=== PATIENT | female | born 1935 | race Two or more races ===

== ENCOUNTER → 2017-09-08 | Outpatient (CLI) | payer MEDICARE ==
--- NOTE | 2017-09-08 14:54 | HKNOTE ---
DATE OF SERVICE: CHIEF COMPLAINT: Right shoulder pain. HISTORY OF PRESENT ILLNESS: This is an 82-year-old female who is complaining of pain in the right s houlder. She has seen Dr. Rian Hobson previously. She states that the pain has been worsening o basil the last year. She is taking ibuprofen for pain control. She is unable to lift using her right hand. She denies any history of trauma. She denies any numbness or tingling. She denies any neck pain. She has no other complaints. Right shoulder 60 degrees forward flexion, 70 degrees of abduction, 40 degrees external rotation, 30 degrees internal rotation, 10 degrees extension. Positive belly press. Positive liftoff. Positiv e Neer's. Positive Nguyen test. IMAGING: X-rays right shoulder, 2 views of the right shoulder demonstrate degenerative changes of t he glenohumeral joint with osteophyte formation and superior migration of the humeral head. IMPRESSION: An 82-year-old female with right shoulder rotator cuff arthropathy. PLAN: I discussed treatment options with the patient. I discussed the need for reverse shoulder ar throplasty. She is not interested in surgery at this time. She was given a prescription for ibupro fen 200 mg, 50 tablets with 1 refill. She will follow up with me as needed in the future. Dictated By: TODD MCGINNIS/RAND Conf#: [id number] DID#: [id number]
--- NOTE | 2017-09-08 23:16 | RADRPT ---
PROCEDURE: XR Right Shoulder. CLINICAL INDICATION: Right shoulder pain. TECHNIQUE: Three views. Frontal internal rotation, frontal external rotation, and scapular Y-view . COMPARISON: No prior study is available for comparison. FINDINGS: There is no fracture or dislocation. The soft tissues are normal. There are severe degenerative changes with osteophytes and joint space narrowing rising from the gle nohumeral joint margins. There is deformity of the humeral head and decreased space between the jacinto ral head and acromion. There is no lytic or blastic lesion. There is no radiopaque foreign body. IMPRESSION: 1. 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 2. Otherwise unremarkable study. RPTAT: QQ .Hugo Medrano MD, MD Date Time Electronically viewed and signed by .Hugo Medrano MD, MD on 09/08/2017 23:16 .R/
== END | disposition home or self-care (01) ==
LOC: HKI 13:41
PROVIDERS: ATTEND Orthopaedic Surgery Adult Reconstructive Orthopaedic Surgery
DX: M12.811 Other specific arthropathies, not elsewhere classified, right shoulder (principal)
CPT/HCPCS: G0463

== ENCOUNTER → 2017-11-14 | Outpatient (CLI) | END | disposition home or self-care (01) ==

== ENCOUNTER → 2018-02-13 | Outpatient (CLI) | END | disposition home or self-care (01) ==

== ENCOUNTER → 2018-02-24 | Outpatient (CLI) | END | disposition home or self-care (01) ==

== ENCOUNTER → 2018-06-05 | Outpatient (CLI) | END | disposition home or self-care (01) ==

== ENCOUNTER → 2018-09-11 | Outpatient (CLI) | END | disposition home or self-care (01) ==